=== PATIENT | female | born 1970 | race Hispanic/Latino ===

== ENCOUNTER 2017-05-23 11:15 | Emergency (ER) | payer BC, OTHER ==
[2017-05-23] MEDS ORDERED: Ketorolac Tromethamine 30 MG/ML VIAL ONE ×2 (12:49→12:50)
[2017-05-23] MEDS ORDERED: traMADol HCl 50 MG TAB ONE (12:49)
== END 2017-05-23 12:58 | disposition home or self-care (01) ==
LOC: ERS 11:15
DX: S39.012A Strain of muscle, fascia and tendon of lower back, initial encounter (principal); M41.9 Scoliosis, unspecified; F41.9 Anxiety disorder, unspecified; F32.9 Major depressive disorder, single episode, unspecified; Z79.899 Other long term (current) drug therapy; X58.XXXA Exposure to other specified factors, initial encounter
CPT/HCPCS: 96372; J1885